=== PATIENT | female | born 1945 | race Caucasian/White ===

== ENCOUNTER 2016-12-21 07:09 | Day surgery (SDC) | payer MEDICARE, OTHER ==
[~2016-12-21] VITALS: Ht 152.4 cm; Wt 65.8 kg
[~2016-12-21 07:09] MED LIST: DIOVAN HCT 160/1 TAB PO; DIOVAN160 MG PO; FLUTICASONE PRO16 GM NASAL; KLONOPIN0.5 MG PO; KLOR-CON 88 MEQ PO; LIPITOR10 MG; OMEPRAZOLE40 MG PO; PEPCID40 MG PO; SINGULAIR10 MG PO; VITAMIN B-121000 MC3; VITAMIN D31000 UNIT PO; ZOLOFT100 MG PO
[2016-12-21 07:50] LABS: HEMATOCRIT 39.6 % (36.0-48.0); HEMOGLOBIN 12.9 g/dL (12-16); MCHC 32.6 g/dL (31.0-37.0); MCV 85.9 fL (80.0-100.0); MEAN PLATELET VOLUME 11.2 fL (7.4-10.4); RBC 4.61 10x6/uL (4.00-5.40); RDW 14.4 % (11.5-14.5); WBC 5.7 10x3/uL (4.8-10.8)
[2016-12-21 08:04] VITALS: BP 114/71; Ht 152.4 cm; Wt 65.8 kg
--- NOTE | 2017-01-03 15:43 | OP ---
PATIENT NAME: SOL WALTER MEDICAL RECORD: [id number] :47 LOCATION:D.OPS ADMISSION DATE: SURGEON: ACOSTA WHEELER MD DATE OF OPERATION: 12/21/2016 PREOPERATIVE DIAGNOSIS: History of complex colon polyps. POSTOPERATIVE DIAGNOSES: 1. History of complex colon polyps. 2. Regrowth of the periappendiceal polyp. 3. Secondary polyp within the cecum. PROCEDURES: 1. Total colonoscopy to cecum. 2. Hot biopsy forceps polypectomy times 1. 3. Colon polypectomy of the periappendiceal polyp and then ablation utilizing the argon plasma tromper. SURGEON: Acosta Wheeler MD OPERATIONS CONTROLLER: None. BLOOD LOSS: Minimal. ANESTHESIA: General. COMPLICATIONS: None. The risks, possible complications and alternatives to procedure were explained to the patient. She elects to proceed. OPERATIVE COURSE: The patient was conveyed to the operating room electively on 12/21/2016. General anesthesia was induced by the anesthesia staff. The patient was placed in the Rodriguez position. A digital rectal examination was performed. A colonoscope was inserted through the anus. It was easily advanced to the cecum. A hot biopsy forceps polypectomy was performed. I then performed some cold endoscopic biopsies of the periappendiceal polyp and then ablated the polypoid base with the argon plasma tromper utilizing the right colon setting in the forced mode. I then slowly withdrew the endoscope. A combination of direct imaging and narrow band imaging were utilized. I dragged the folds. The pullback was greater than an 18-minute pullback. The prep was adequate. There were a number of minute polyps that were not biopsied, but were obliterated with argon plasma tromper. There was no regrowth of the hepatic flexure polyp. The scar at the prior polypectomy site was easily identifiable. A retroflexed view was obtained in the rectum. I then unretroflexed the scope and removed it under direct vision. I will see the patient back in my office in 2-3 weeks. She would be a candidate for a cecectomy. I am going to discuss this with Dr. Walter. TRANSINT:[id number] Voice Confirmation ID: [id number] DOCUMENT ID: [id number] OPERATIVE REPORT [id number] SOL WALTER ROBERT MD at 1502 CC: KAYLA VALDOVINOS [id number] DICTATION DATE: 12/21/16 1506 LAVATORY ATTENDANT: 12/21/16 1558 [facility] 12/21/16 [place] [id number] [place] [id number]
--- NOTE | 2017-01-03 15:43 | HP ---
PATIENT: SOL BARRETO MEDICAL RECORD: [id number] ACCOUNT: [id number] LOCATION:[facility] : 47 ADMISSION DATE: 12/21/16 HISTORY AND PHYSICAL EXAMINATION CHIEF COMPLAINT: Polyps. HISTORY OF PRESENT ILLNESS: This patient was initially referred by Dr. Simons. 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 The patient is to undergo a colonoscopy with polypectomy possibly utilizing argon plasma fixed route bus operator. The risks, possible complications, and alternatives to procedure were explained to the patient. She elects to proceed. PAST MEDICAL AND SURGICAL HISTORY: Sleep apnea on CPAP, hypertension, history of mitral valve repair, gastroesophageal reflux which is controlled with [id number] medications, reactive airway disease. SOCIAL HISTORY: Nonsmoker. ALLERGIES: TALYA INHIBITORS, PENICILLIN, WELL ADHESIVES. HOME MEDICINES: Omeprazole, Singulair, fluticasone, Zoloft, losartan as well as clonazepam. REVIEW OF SYSTEMS: Negative for CVA or seizures. Negative for diabetes or thyroid problems. Review of systems is negative other than as is described above. PHYSICAL EXAMINATION: GENERAL: The patient does not appear acutely ill. She does not appear chronically ill. VITAL SIGNS: Reviewed. EARS: External ears appear normal. EYES: Extraocular movements are intact. NECK: Trachea is midline. CHEST: No intercostal retractions. PULMONARY: Nonlabored, no stridor. ABDOMEN: No peritonitis. EXTREMITIES: No peripheral cyanosis. INTEGUMENT: No rash, no ulcerations. IMPRESSION: History of complex polyps due to size and location. PLAN: Colonoscopy and polypectomy utilizing the argon plasma fixed route bus operator. TRANSINT:[id number] Voice Confirmation ID: [id number] DOCUMENT ID: [id number] HISTORY AND PHYSICAL [id number] REAGAN BARRETONNE Krystal ARIE WHEELER MD at 1543 CC: KAYLA VALDOVINOS [id number] DICTATION DATE: 12/21/16 1503 MOTION STUDY ENGINEER: 12/21/16 1602 [facility] 12/21/16 [facility] [address] [place] [address]
== END 2016-12-21 16:42 | disposition home or self-care (01) ==
LOC: D.OPS 07:09 → D.PAN 09:00 → D.OPS 09:00 → D.PAN 10:00 → D.OPS 16:42
PROVIDERS: Anesthesiology
DX: D12.0 Benign neoplasm of cecum (principal); D12.6 Benign neoplasm of colon, unspecified; D12.1 Benign neoplasm of appendix; K63.5 Polyp of colon; G47.30 Sleep apnea, unspecified; I10 Essential (primary) hypertension; K21.9 Gastro-esophageal reflux disease without esophagitis; J45.909 Unspecified asthma, uncomplicated; Z88.0 Allergy status to penicillin; Z88.8 Allergy status to other drugs, medicaments and biological substances; Z79.899 Other long term (current) drug therapy

== ENCOUNTER 2016-12-24 11:13 | Inpatient (IN) | payer MEDICARE, OTHER ==
[~2016-12-24] VITALS: Ht 152.4 cm; Wt 65.9 kg
[2016-12-24 11:41] LABS: BASOPHILS 0.2 % (0-2); HEMATOCRIT 32.7 % (36.0-48.0); HEMOGLOBIN 10.6 g/dL (12-16); IMMATURE GRANULOCYTES 0.3 % (0-5); LYMPHOCYTES 9.8 % (15-50); MCH 27.9 pg (26.0-34.0); MCHC 32.4 g/dL (31.0-37.0); MCV 86.1 fL (80.0-100.0); MEAN PLATELET VOLUME 10.8 fL (7.4-10.4); MONOCYTES 6.2 % (2-11); NEUTROPHILS 82.5 % (40-80); PLATELET COUNT 196 10x3/uL (130-400); RDW 14.1 % (11.5-14.5); WBC 13.1 10x3/uL (4.8-10.8)
[2016-12-24 11:57] LABS: ALKALINE PHOSPHATASE 45 U/L (46-116); ALT (SGPT) 13 U/L (10-68); BILIRUBIN - TOTAL 0.26 mg/dL (0.2-1.3); CALC OSMOLALITY 285 mosm/kg (275-300); CALCIUM 7.9 mg/dL (8.5-10.1); CARBON DIOXIDE 26.6 mmol/L (21.0-32.0); CHLORIDE - SERUM 107 mmol/L (98-107); CREATININE - SERUM 0.7 mg/dL (0.6-1.3); POTASSIUM - SERUM 3.4 mmol/L (3.5-5.1); PROTEIN - SERUM 6.3 g/dL (6.4-8.2); SODIUM 141 mmol/L (136-145); UREA NITROGEN 15 mg/dL (7-18); eGFR NON AFRICAN AMERICAN 88 mL/min (90-120)
[2016-12-24 11:59] LABS: APTT 26.4 SECONDS (22.8-39.4); GLUCOSE 169 mg/dL (74-106); INR 1.02 (0.85-1.17); PROTIME 13.3 SECONDS (11.6-15.0)
--- NOTE | 2016-12-24 17:00 | NUR ---
RECEIVED PATIENT TO ROOM 2203 VIA STRETCHER FROM THE ER. PATIENT IS AWAKE, ALERT, AND ORIENTED X4. PATIENT AMBULATED TO HER BED WITHOUT ANY PROBLEMS NOTED. ORIENTED PATIENT TO ROOM AND CALL LIGHT.
[2016-12-24 17:16] VITALS: BP 115/70; Ht 152.4 cm; Wt 65.9 kg
[2016-12-24 17:59] LABS: HEMATOCRIT 30.1 % (36.0-48.0); HEMOGLOBIN 9.7 g/dL (12-16); MCHC 32.2 g/dL (31.0-37.0); MCV 86.7 fL (80.0-100.0); MEAN PLATELET VOLUME 10.9 fL (7.4-10.4); RBC 3.47 10x6/uL (4.00-5.40); RDW 14.2 % (11.5-14.5); WBC 10.9 10x3/uL (4.8-10.8)
--- NOTE | 2016-12-24 19:15 | NUR ---
RECEIVED CARE FROM DAY NURSE. PT IN BED IN HIGH FOWLERS POSITION. REPORTS NO NEEDS AT THIS TIME. IV TO LEFT WRIST PATENT AND INFUSING PER ORDER.
[2016-12-24 20:00] VITALS: BP 91/56
--- NOTE | 2016-12-24 20:30 | NUR ---
RT CALLED TO [facility] CP[facility] TO O2.
[2016-12-25] VITALS: BP 113/73
[2016-12-25 00:41] LABS: HEMATOCRIT 27.6 % (36.0-48.0); HEMOGLOBIN 8.9 g/dL (12-16); MCH 27.9 pg (26.0-34.0); MCHC 32.2 g/dL (31.0-37.0); MCV 86.5 fL (80.0-100.0); RBC 3.19 10x6/uL (4.00-5.40); RDW 14.3 % (11.5-14.5)
--- NOTE | 2016-12-25 01:05 | NUR ---
SPOKE WITH DR RAI ABOUT RECENT H&H. NO NEW ORDERS AT THIS TIME. CONTINUE TO WATCH.
--- NOTE | 2016-12-25 02:55 | NUR ---
PT LYING IN BED ON SIDE. HOME C-PAP IN PLACE. IV INFUSING. RESP EVEN AND UNALBORED. CALL LIGHT AT SIDE.
[2016-12-25 04:00] VITALS: BP 103/64
[2016-12-25 05:01] LABS: HEMATOCRIT 26.6 % (36.0-48.0); HEMOGLOBIN 8.4 g/dL (12-16); MCH 27.5 pg (26.0-34.0); MCHC 31.6 g/dL (31.0-37.0); MCV 86.9 fL (80.0-100.0); MEAN PLATELET VOLUME 11.4 fL (7.4-10.4); RBC 3.06 10x6/uL (4.00-5.40); RDW 14.3 % (11.5-14.5)
[2016-12-25 08:15] VITALS: BP 106/73
[2016-12-25 11:54] LABS: HEMATOCRIT 26.7 % (36.0-48.0); HEMOGLOBIN 8.4 g/dL (12-16); MCH 27.8 pg (26.0-34.0); MCHC 31.5 g/dL (31.0-37.0); MCV 88.4 fL (80.0-100.0); MEAN PLATELET VOLUME 10.5 fL (7.4-10.4); RBC 3.02 10x6/uL (4.00-5.40); RDW 14.5 % (11.5-14.5); WBC 5.7 10x3/uL (4.8-10.8)
[2016-12-25 12:41] VITALS: BP 120/57
--- NOTE | 2016-12-25 15:02 | NUR ---
SITTING UP IN BED VISITING WITH FAMILY. DENIES ANY NEEDS OR PAIN. NO S/SX OF ACUTE DISTRESS. CALL LIGHT AND PERSONAL ITEMS WITHIN REACH, BED LOW, SR X3. WILL CONTINUE TO MONITOR
[2016-12-25 16:40] VITALS: BP 125/60
[2016-12-25 18:20] LABS: HEMATOCRIT 26.2 % (36.0-48.0); HEMOGLOBIN 8.3 g/dL (12-16); MCH 27.9 pg (26.0-34.0); MCHC 31.7 g/dL (31.0-37.0); MCV 88.2 fL (80.0-100.0); MEAN PLATELET VOLUME 10.3 fL (7.4-10.4); RBC 2.97 10x6/uL (4.00-5.40); RDW 14.5 % (11.5-14.5); WBC 5.7 10x3/uL (4.8-10.8)
--- NOTE | 2016-12-25 18:28 | NUR ---
SITTING UP IN BED WATCHING TV. DENIES ANY NEEDS OR PAIN. CALL LIGHT WITHIN REACH, BED LOW. WILL CONTINUE TO MONITOR
[2016-12-25 20:00] VITALS: BP 115/57
[2016-12-26 05:58] LABS: CALCIUM 7.9 mg/dL (8.5-10.1); CARBON DIOXIDE 27.4 mmol/L (21.0-32.0); CHLORIDE - SERUM 111 mmol/L (98-107); CREATININE - SERUM 0.7 mg/dL (0.6-1.3); MAGNESIUM - SERUM 2.2 mg/dL (1.8-2.4); POTASSIUM - SERUM 3.7 mmol/L (3.5-5.1); SODIUM 145 mmol/L (136-145); eGFR NON AFRICAN AMERICAN 88 mL/min (90-120)
[2016-12-26 05:59] LABS: CALC OSMOLALITY 286 mosm/kg (275-300); GLUCOSE 95 mg/dL (74-106); UREA NITROGEN 8 mg/dL (7-18)
[2016-12-26 07:49] LABS: BASOPHILS 0.4 % (0-2); EOSINOPHILS 5.4 % (0-7); HEMATOCRIT 26.4 % (36.0-48.0); HEMOGLOBIN 8.4 g/dL (12-16); IMMATURE GRANULOCYTES 0.2 % (0-5); LYMPHOCYTES 28.2 % (15-50); MCH 28.3 pg (26.0-34.0); MCHC 31.8 g/dL (31.0-37.0); MCV 88.9 fL (80.0-100.0); MEAN PLATELET VOLUME 11.1 fL (7.4-10.4); MONOCYTES 7.1 % (2-11); NEUTROPHILS 58.7 % (40-80); PLATELET COUNT 178 10x3/uL (130-400); RBC 2.97 10x6/uL (4.00-5.40); RDW 14.4 % (11.5-14.5); WBC 5.2 10x3/uL (4.8-10.8)
[2016-12-26 08:10] VITALS: BP 113/68
--- NOTE | 2016-12-26 10:08 | NUR ---
PT SEEN-STATES HOPING FOR DISCHARGE TODAY. PASSED VERY DARK BROWN STOOL THIS AM. CALL LIGHT IN REACH
[2016-12-26 11:34] VITALS: BP 119/67
[2016-12-26 15:52] VITALS: BP 113/57
--- NOTE | 2016-12-26 16:19 | NUR ---
PT RESTING IN BED FAMILY AT BEDSIDE CALL LIGHT IN REACH WILL MONITER
--- NOTE | 2016-12-26 17:40 | NUR ---
Is the patient Alert and Oriented? Yes 0 * How many steps to enter\exit or inside your home? NONE 0 * PCP DR Renae VALDOVINOS 0 * Pharmacy [facility] [address] 0 * Preadmission Environment Home Alone 0 * ADLs Independent 0 * Other Equipment NONE 0 * List name and contact numbers for known caregivers / representatives who currently or will assist patient after discharge: PALMA GATES- DAUGHTER- [phone] 0 * Community resources currently utilized None 0 * Please name any agencies selected above. NONE 0 * Additional services required to return to the preadmission environment? No 0 * Can the patient safely return to the preadmission environment? Yes 0 * Has this patient been hospitalized within the prior 30 days at any hospital? Yes 0 Grand Total: 0
--- NOTE | 2016-12-26 17:48 | NUR ---
CM MET WITH THE PATIENT AND HER DAUGHTER, PALMA HERNANDEZ, AT THE BEDSIDE. PATIENT IS ALERT AND ORIENTED. IS INDEPENDENT IN HER CARE. NO DME. NO HOME HEALTH OR COMMUNITY SERVICES. [facility] WILL PROVIDE TRANSPORTATION TO HOME. SHE UTILIZES [facility] ON [address] FOR RX'S. DENIES ANY NEEDS. NO STEPS TO ENTER HER HOME. PCP- Daniel VALDOVINOS AT [place], [place].
--- NOTE | 2016-12-26 18:00 | NUR ---
PT DISCHARGED TO HOME VIA WHEELCHAIR WITH SISTER DISCHARGE MEDS AND SUMMARY REVIEWED WITH PT NO QUESTIONS TOLERATED WELL
== END 2016-12-26 18:07 | disposition home or self-care (01) | DRG 378 ==
LOC: D.ER 11:13 → OBSVTIME 15:47 → D.MS 15:47
PROVIDERS: Emergency Medicine; Surgery; ADMIT Surgery
DX: K92.2 Gastrointestinal hemorrhage, unspecified (principal); D62 Acute posthemorrhagic anemia; I95.9 Hypotension, unspecified; I10 Essential (primary) hypertension